=== PATIENT | male | born 1990 | race Caucasian/White ===

== ENCOUNTER 2020-12-14 07:49 | Outpatient (REF) | payer OTHER, SELFPAY ==
[2020-12-14 10:02] LABS: MANUAL DIFF FLAG NO
[2020-12-14 10:11] LABS: Basophils Percent Auto 0.9 % (0-2); Eosinophils Absolute Auto 0.1 X10*3/uL (0.0-0.4); Eosinophils Percent Auto 3.2 % (0-4); Hematocrit 41.9 % (42-52); Hemoglobin 14.7 g/dl (14.0-18.0); Imm Gran Abs Auto 0.01 X10*3/uL (0.00-0.03); Imm Gran Pct Auto 0.2 % (0.0-0.4); Lymphocytes Absolute Auto 1.6 X10*3/uL (1.2-4.9); Mean Corpuscular HGB Conc 35.1 g/dl (31.0-36.0); Mean Corpuscular Hemoglobin 33.3 pg (27.0-33.0); Mean Platelet Volume 9.2 fL (9.4-12.4); Monocytes Absolute Auto 0.6 X10*3/uL (0.1-1.2); Monocytes Percent Auto 13.2 % (2-11); Neutrophils Percent Auto 45.5 % (45-73); Platelet Count 343 X10*3/uL (160-400); Red Blood Count 4.41 X10*6/uL (4.60-5.80); Red Cell Distribution Width 12.7 % (11.0-16.0); White Blood Count 4.4 X10*3/uL (4.8-10.8)
[2020-12-14 10:52] LABS: Alanine Aminotransferase 17 U/L (0-40); Albumin Level 4.3 g/dL (3.5-5.0); Alkaline Phosphatase 39 U/L (39-117); Aspartate Amino Transferase 15 U/L (5-37); Bilirubin Direct 0.3 mg/dL (0.0-0.5); Bilirubin Total 0.8 mg/dL (0.0-1.0); Cholesterol 186 mg/dL; Glucose Fasting 92 mg/dL (60-99); HDL Cholesterol 74 mg/dL; LDL Cholesterol Calculated 69 mg/dl; Total Protein 6.7 g/dL (6.5-8.0); Triglycerides 219 mg/dL; Uric Acid 8.4 mg/dL (3.4-7.0)
[2020-12-14 11:14] LABS: Thyroid Stimulating Hormone 1.05 uIU/mL (0.32-4.0)
== END 2020-12-14 07:50 | disposition home or self-care (01) ==
LOC: HO.10HDL 07:49
PROVIDERS: Visit Provider Family Medicine
DX: Z83.3 Family history of diabetes mellitus (principal); Z82.3 Family history of stroke; M10.9 Gout, unspecified; R63.4 Abnormal weight loss
CPT/HCPCS: 36415; 80061; 80076; 82947; 84443; 84550; 85025

== ENCOUNTER 2024-07-21 09:48 | Emergency (ER) | payer OTHER, SELFPAY ==
--- NOTE | ~2024-07-21 | XR_ITS ---
EXAMINATION: XR ELBOW, LEFT CLINICAL INFORMATION: Left elbow pain COMPARISON: None available. TECHNIQUE: AP, lateral, and oblique views of the left elbow. FINDINGS: The bones and soft tissues are normal. No fracture or joint effusion. Alignment is anatomic. Joint spaces are maintained. XR/XR elbow LT min 3V IMPRESSION: No displaced fracture. Electronically signed by: Enoch Beaulieu MD 07/21/2024 03:03 PM EDT
[2024-07-21 10:07] VITALS: BP 157/117; PULSE 89; RESP 16; TEMP 36.5; O2SAT 97; BMI 27.6
[2024-07-21 10:16] LABS: MANUAL DIFF FLAG NO
[2024-07-21 10:18] LABS: Basophils Absolute Auto 0.1 X10*3/uL (0.0-0.2); Basophils Percent Auto 0.9 % (0-2); Eosinophils Absolute Auto 0.2 X10*3/uL (0.0-0.4); Eosinophils Percent Auto 2.2 % (0-4); Hematocrit 43.8 % (42.0-52.0); Hemoglobin 15.8 g/dl (14.0-18.0); Imm Gran Abs Auto 0.03 X10*3/uL (0.00-0.03); Imm Gran Pct Auto 0.3 % (0.0-0.4); Lymphocytes Absolute Auto 1.6 X10*3/uL (1.2-4.9); Lymphocytes Percent Auto 15.8 % (20-40); Mean Corpuscular HGB Conc 36.1 g/dl (31.0-36.0); Mean Corpuscular Hemoglobin 33.1 pg (27.0-33.0); Mean Corpuscular Volume 91.6 fL (80.0-98.0); Mean Platelet Volume 8.8 fL (9.4-12.4); Monocytes Absolute Auto 0.8 X10*3/uL (0.1-1.2); Monocytes Percent Auto 7.8 % (2-11); Neutrophils Absolute Auto 7.6 x10*3/uL (2.0-8.3); Platelet Count 334 X10*3/uL (160-400); Red Blood Count 4.78 X10*6/uL (4.60-5.80); Red Cell Distribution Width 12.5 % (11.0-16.0); White Blood Count 10.3 X10*3/uL (4.8-10.8)
[2024-07-21 10:32] LABS: Anion Gap 14 (12-20); Blood Urea Nitrogen 16 mg/dL (9-16); Carbon Dioxide 25 mmol/L (22-29); Chloride 103 mmol/L (96-108); Creatinine Clr Calc Pharmacy 136.7; Estimated Glomerular Filt Rate > 60; Glucose Random 114 mg/dL (60-115); Potassium 4.2 mmol/L (3.3-5.1); Sodium 138 mmol/L (135-145)
--- NOTE | 2024-07-21 12:34 | ED_ITS ---
HPI - Skin/Abscess/Foreign Bdy General Chief complaint: Skin/Abscess/Foreign Body Stated complaint: Bug bite? Time Seen by Provider: 07/21/24 12:33 Source: patient Mode of arrival: ambulatory Limitations: no limitations History of Present Illness ED Provider: Michael PHILIPPE HPI narrative: 34 year old with no significant pmh presenting with concerns of L. olecranon erythema and burning pain upon waking this morning. Pt is concerned it may be due to bug/spider bite, but denies recalling being bit by something. He has previously been stung by insects but reports no allergic response or allergies to anything environmental or medicine. No one else in the home has similar symptoms. Pt went to work this morning, but experienced nauseaa without vomiting and reports 9/10 burning pain in the area. Related Data Previous Rx's ?Medication ?Instructions ?Recorded cephalexin 500 mg tablet 500 mg PO Q6H 10 days #40 tabs 07/21/24 doxycycline hyclate 100 mg capsule 100 mg PO BID 10 days #20 caps 07/21/24 prednisone 20 mg tablet 40 mg (2 x 20 mg) PO DAILY 5 days 07/21/24 #10 tabs Allergies Allergy/AdvReac Type Severity Reaction Status Date / Time No Known Allergies Allergy Verified 07/21/24 10:08 Review of Systems 2 Review of Systems: Yes all other systems are reviewed and are negative PMFSH Past Medical History Attestation statement: The following information was validated with the patient. Source: old records reviewed and nursing notes reviewed Social History Social History (System 08/08/22 @ 09:45 by Anushka Antoine) Advance Directives: No Physical Exam 2 Vital Signs: Vital Signs: Last Vital Signs Temp 98.0 F 07/21/24 13:11 Pulse 74 07/21/24 13:11 Resp 15 07/21/24 13:11 BP 152/103 H 07/21/24 13:11 Pulse Ox 99 07/21/24 13:11 O2 Del Method Room Air 07/21/24 13:11 BMI result Body Mass Index 27.6 vss Appearance: Alert.? Oriented X3.? No acute distress.? Head: Normocephalic, atraumatic, no step-offs or deformities Eyes: Pupils equal, round and reactive to light.? CVS: Normal heart rate and rhythm.? Pulses normal.? Respiratory: No respiratory distress.? Breath sounds normal.? Abdomen: Soft and nontender.? Skin: Skin warm and dry.? Normal skin color.? Normal skin turgor.? Extremities: No lower extremity edema.? No calf ttp. 5/5 strength to bilateral upper and lower extremities 2+ radial pulses equla and b/l. no wrist drop. + erythema and edema to left olecronon process painful rom central ulceration/small puncture. No fluctuance Back: No midline tenderness, no C-spine tenderness, full range of motion, no CVA tenderness bilaterally Neuro: Oriented X 3.? No motor deficit.? No sensory deficit. CN 2-12 intact Course Reevaluation(s) Reevaluation #1: CBC with no leukocytosis or anemia. Normal ESR and CRP. Chemistry unremarkable. X-ray pending. I do not suspect septic joint. Time: 13:50 Reevaluation #2: Dr. Salmeron evaluated patient and did a FNA superficially 4 cc of serosanguinous fluid expressed. No pus. Plan- dc w/ ortho and atbx Time: 14:07 Medical Decision Making Medical Decision Making [facility] Narrative: 34 year old male presenting with concerns of R. olecranon burning and erythema d/t suspected bug bite since this morning PE- L. olecranon erythema, warmth, puncture lesion; painful ROM L. elbow however full rom 5/5 strength to bilateral upper and lower extremities 2+ radial pulses equal and b/l. no wrist drop. Hx and pe concerning for allergic dermatitis vs bursitis vs inflammatory bursitis vs cellulitis. Unlikely fracture, dislocation, reactive arthritis, septic joint, threat to limb, necrotizing infection Plan - urine, labs, imaging Differential Diagnosis Differential Diagnoses: The differential diagnosis associated with the presentation includes Hx and pe concerning for allergic dermatitis vs bursitis vs inflammatory bursitis vs cellulitis. Unlikely fracture, dislocation, reactive arthritis, septic joint, threat to limb, necrotizing infection Admission/Observation Consideration of admission/observation: Escalation of care including admission/observation considered [facility] Lab Data [facility] Lab Attestation statement: I reviewed the patient's lab results. 07/21/24 10:13 07/21/24 10:13 Labs: Lab Results 07/21/24 07/21/24 Range/Units 10:13 12:51 WBC 10.3 (4.8-10.8) X10*3/uL RBC 4.78 (4.60-5.80) X10*6/uL Hgb 15.8 (14.0-18.0) g/dl Hct 43.8 (42.0-52.0) % MCV 91.6 (80.0-98.0) fL MCH 33.1 H (27.0-33.0) pg MCHC 36.1 H (31.0-36.0) g/dl RDW 12.5 (11.0-16.0) % Plt Count 334 (160-400) X10*3/uL MPV 8.8 L (9.4-12.4) fL Immature Gran % (Auto) 0.3 (0.0-0.4) % Neut % (Auto) 73.0 (45-73) % Lymph % (Auto) 15.8 L (20-40) % [facility] [place] % (Auto) 7.8 (2-11) % Eos % (Auto) 2.2 (0-4) % Baso % (Auto) 0.9 (0-2) % Lymph # (Auto) 1.6 (1.2-4.9) X10*3/uL [facility] # (Auto) 0.8 (0.1-1.2) X10*3/uL Eos # (Auto) 0.2 (0.0-0.4) X10*3/uL Baso # (Auto) 0.1 (0.0-0.2) X10*3/uL Abs Immat Gran (auto) 0.03 (0.00-0.03) X10*3/uL Absolute Neuts (auto) 7.6 (2.0-8.3) x10*3/uL Absolute Nucleated RBC 0.000 (0.0-0.012) X10*3/uL Nucleated RBC % (auto) 0.0 (0.0-0.2) /100WBC ESR 7 (0-15) MM/HR Sodium 138 (135-145) mmol/L Potassium 4.2 (3.3-5.1) mmol/L Chloride 103 (96-108) mmol/L Carbon Dioxide 25 (22-29) mmol/L Anion Gap 14 (12-20) BUN 16 (9-16) mg/dL Creatinine 0.91 (0.5-1.4) mg/dL Estim Creat Clear Calc 136.7 Estimated GFR > 60 Random Glucose 114 (60-115) mg/dL Lactic Acid 0.8 (0.5-2.0) mmol/L Calcium 10.0 (8.4-10.2) mg/dL C-Reactive Protein 0.20 (< or = 0.50) mg/dL Independent Interpretation I performed an independent interpretation of an: Plain X-Ray Radiology Impression Discussion of test interpretation with radiology: I have reviewed the radiologist's reading. Prescription Management I considered prescription management with: Antibiotic Discharge Plan Discharge Clinical Impression: Cellulitis, Bursitis Patient Disposition: Home, Self-Care Instructions: Cellulitis (ED), Elbow Bursitis (ED), Warm Compress or Soak (ED) Additional Instructions: Take your medications as prescribed. If you were prescribed antibiotics today, it is important that you take your medication to their entirety, do not skip any doses, do not finish them early. Follow-up with your primary care provider this week. Return to the emergency department with new or worsening symptoms. Such as fevers, chills, chest pain, shortness of breath, nausea, vomiting, dizziness, headache, vision changes, lethargy In case of emergency call 911 Prescriptions: New doxycycline hyclate 100 mg capsule 100 mg PO BID 10 Days Qty: 20 0RF prednisone 20 mg tablet 40 mg PO DAILY 5 Days Qty: 10 0RF cephalexin 500 mg tablet 500 mg PO Q6H 10 Days Qty: 40 0RF Referrals: [facility] [Provider Group] - 2 days Freddy Dahl MD [Primary Care Provider] - 2 days Stand Alone Forms: Work/School Release Print Language: [place]
[2024-07-21 13:11] VITALS: BP 152/103; PULSE 74; RESP 15; TEMP 36.7; O2SAT 99
[2024-07-21 13:14] LABS: Lactic Acid 0.8 mmol/L (0.5-2.0)
[2024-07-21 13:38] LABS: Erythrocyte Sedimentation Rate 7 MM/HR (0-15)
[2024-07-21 14:31] VITALS: BP 146/106; PULSE 85; RESP 16; TEMP 36.7; O2SAT 97
== END 2024-07-21 14:47 | disposition home or self-care (01) ==
PROVIDERS: Physician Assistant; Emergency Provider Emergency Medicine; PCP Family Medicine
DX: M70.22 Olecranon bursitis, left elbow (principal); M25.522 Pain in left elbow; Z79.899 Other long term (current) drug therapy
CPT/HCPCS: 36415; 73080; 80048; 83605; 85025; 85652; 86140; 99283; 99284